=== PATIENT | female | born 1985 | race American Indian/Alaskan Native ===

== ENCOUNTER 2016-03-22 13:58 | Outpatient (CLI) | payer MEDICARE ==
--- NOTE | 2016-03-22 16:21 | Magnetic Resonance Report ---
MRI of the brain with and without contrast. History: Metastatic breast cancer. Findings: Comparison is made to the most recent MR of the brain on September 13, 2014. Findings: There has been interval development of a heterogeneously enhancing mass in the right cerebellar hemisphere measuring 3.4 cm in maximum dimension with severe surrounding edema resulting in extrinsic compression of the fourth ventricle. There are no additional enhancing lesions or other evidence of new metastatic disease. The remainder of the ventricular system is normal. The khan-white matter junction is normal. There are no extra-axial collections. There is evidence of bilateral maxillary sinus cysts unchanged compared to previous study. The pituitary gland is normal. The remaining visualized extraocular structures are normal. 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 No hydrocephalus is seen at this time. 2. Maxillary sinus cysts.
== END 2016-03-22 13:59 | disposition home or self-care (01) ==
LOC: SPVIMAG 13:58
PROVIDERS: ATTEND Internal Medicine Hematology & Oncology
DX: C79.31 Secondary malignant neoplasm of brain (principal); C50.111 Malignant neoplasm of central portion of right female breast
CPT/HCPCS: 70553; A9577

== ENCOUNTER 2016-04-05 08:58 | Outpatient (CLI) | payer MEDICARE ==
--- NOTE | 2016-04-09 09:57 | PET Report ---
PET/CT:04/05/16 08:58:00 CLINICAL: Breast cancer restaging. RADIOPHARMACEUTICAL: 13.4mCi F18-FDG. COMPARISON: 11/17/15 PET/CT TECHNIQUE- Following intravenous injection of F-18 FDG and an approximately 60 minute uptake period, CT and PET images from the mid skull to the upper thighs were acquired with the patient in the fasted state. No contrast was administered. The CT protocol used for this PET CT study is designed for attenuation correction and anatomic localization of PET abnormalities. This insurance salesperson CT is not desired to produce and cannot replace, tqman-tu-dhj-art diagnostic CT scans with specific imaging protocols for different body parts and indications. Plasma glucose at the time of this test: 92g/dl. The standardized uptake values (SUV) are normalized to patient body weight and indicate the highest activity concentration (SUV max) in a given disease site. FINDINGS: Brain--Physiologic FDG uptake in the visualized regions of the brain. Paradoxically, there is less FDG uptake in the right cerebellar hemisphere where there is a known metastasis documented by a 03/22/16 brain MRI. However, this reduced FDG uptake may reflect treatment which has occurred since the brain MRI. Neck--Physiologic FDG uptake . Chest--Physiologic FDG uptake in mediastinal blood pool and myocardium. Lungs--No abnormal uptake. No pulmonary nodule or mass. Pleura/pericardium--No abnormal uptake. Thoracic nodes--No abnormal uptake. Hepatobiliary--No abnormal uptake. Liver background SUV mean, as a reference for comparing FDG studies, is 4.9 compared to 3.8 on the last exam. No liver mass. Spleen--No abnormal uptake. Pancreas--No abnormal uptake. Adrenal Glands--No abnormal uptake. Kidneys/Ureters/Bladder--No abnormal uptake. Abdominopelvic Nodes--No abnormal uptake. Bowel/Peritoneum/Mesentery--No abnormal uptake. Pelvic organs--No abnormal uptake. Bones/Soft Tissues--No abnormal uptake. Stable mixed lytic and sclerotic and uniformly sclerotic lesions involving the spine. No new bone lesions. Other findings: Status post right mastectomy. IMPRESSION- Stable skeletal metastasis and no evidence of pulmonary, hepatic or lavern metastasis.
== END 2016-04-05 08:59 | disposition home or self-care (01) ==
LOC: PET 08:58
PROVIDERS: ATTEND Internal Medicine Hematology & Oncology
DX: C79.31 Secondary malignant neoplasm of brain (principal); C50.111 Malignant neoplasm of central portion of right female breast
CPT/HCPCS: 78815; 82962; A9552

== ENCOUNTER 2016-10-08 12:50 | Outpatient (CLI) | payer MEDICARE ==
[2016-10-08] MEDS ORDERED: FLUSH HEPARIN IV ONE ×2 (13:41→14:05)
[2016-10-08 14:24] LABS: Basophils % (Auto) 0.8 % (0.0-1.8); Eosinophils % (Auto) 0.2 % (0.0-4.3); Hematocrit 44.1 % (30.3-42.9); Mean Corpuscular HGB Conc 32 % (30-34); Mean Corpuscular Hemoglobin 29 pg (28-32); Mean Corpuscular Volume 92 fl (79-97); Platelet Count 115 K/mm3 (140-440); Red Blood Count 4.77 M/mm3 (3.65-5.03); Red Cell Distribution Width 16.9 % (13.2-15.2)
[2016-10-08 14:41] LABS: Alanine Aminotransferase 68 units/L (7-56); Albumin 3.2 g/dL (3.9-5); Albumin/Globulin Ratio 0.8 %; Alkaline Phosphatase 338 units/L (35-129); Anion Gap 21 mmol/L; Blood Urea Nitrogen 7 mg/dL (7-17); Calcium 9.2 mg/dL (8.4-10.2); Carbon Dioxide 21 mmol/L (22-30); Chloride 102.6 mmol/L (98-107); Cholesterol 340 mg/dL (50-199); Glucose 66 mg/dL (65-100); HDL Cholesterol 108 mg/dL (40-59); LDL Cholesterol,Direct 221 mg/dL (50-130); Potassium 4.3 mmol/L (3.6-5.0); Sodium 140 mmol/L (137-145); Triglycerides 58 mg/dL (2-149)
[2016-10-10 16:12] LABS: Vitamin D, 25-OH, Total 21 ng/mL (30-100)
== END 2016-10-08 12:51 | disposition home or self-care (01) ==
LOC: LAB 12:50
DX: I10 Essential (primary) hypertension (principal); M62.81 Muscle weakness (generalized); R47.1 Dysarthria and anarthria; R56.9 Unspecified convulsions; R63.5 Abnormal weight gain; Z79.52 Long term (current) use of systemic steroids; D64.9 Anemia, unspecified; Z79.899 Other long term (current) drug therapy
CPT/HCPCS: 36415; 80053; 80061; 80186; 82306; 82607; 83036; 84439; 84443; 85025; J1642